=== PATIENT | female | born 1990 | race Caucasian/White ===

== ENCOUNTER 2023-08-16 13:47 | Inpatient (IN) | payer OTHER ==
[~2023-08-16] VITALS: Ht 170.2 cm; Wt 68.0 kg
[2023-08-16] MEDS ORDERED: GABAPENTIN (13:59)
[2023-08-16] MEDS ORDERED: KEPPRA (13:59)
[2023-08-16] MEDS ORDERED: CELEXA (13:59)
[2023-08-16] MEDS ORDERED: ONDANSETRON 4 MG/2 ML VIAL ONE (14:05)
[2023-08-16] MEDS ORDERED: HYDROMORPHONE 1 MG/1 ML DISP.SYRIN ONE ×2 (14:05→15:03)
[2023-08-16] MEDS ORDERED: IV NORMAL SALINE 1000 ML BAG IV ONE (14:15)
[2023-08-16] MEDS ORDERED: HYDROMORPHONE 1 MG/1 ML DISP.SYRIN IV ONE ×2 (14:15→15:00)
[2023-08-16] MEDS ORDERED: ONDANSETRON 4 MG/2 ML VIAL IV ONE (14:15)
[2023-08-16 14:17] LABS: BASOPHILS % (AUTO) 0.3 % (0.0-2.0); HEMATOCRIT 38.2 % (31.2-41.9); LYMPHOCYTES # (AUTO) 0.4 K/uL (0.8-4.8); LYMPHOCYTES % (AUTO) 4.6 % (20.5-51.5); MEAN CORPUSCULAR HEMOGLOBIN 30.1 uug (24.7-32.8); MEAN CORPUSCULAR HGB CONC 34 g/dL (32.3-35.6); MEAN CORPUSCULAR VOLUME 88.6 fL (75.5-95.3); MONOCYTES # (AUTO) 0.3 K/uL (0.1-1.30); MONOCYTES % (AUTO) 3.6 % (0.0-11.0); NEUTROPHILS # (AUTO) 7.5 K/uL (1.8-8.9); NEUTROPHILS % (AUTO) 91.5 % (38.5-71.5); PLATELET COUNT (AUTO) 134 K/uL (179-408); RED BLOOD CELL COUNT(AUTO) 4.31 MIL/uL (3.63-4.92); RED CELL DISTRIBUTION WIDTH 13.4 % (12.3-17.7); WHITE BLOOD COUNT (AUTO) 8.2 K/uL (3.8-11.8)
[2023-08-16 14:19] LABS: DIFFERENTIAL COMMENT 1
[2023-08-16 14:30] LABS: ALANINE AMINOTRANSFERASE 85 U/L (14-59); ALKALINE PHOSPHATASE 115 U/L (50-136); ASPARTATE AMINOTRANSFERASE 106 U/L (15-37); BILIRUBIN,DIRECT 0.1 mg/dL (0.0-0.2); BILIRUBIN,TOTAL 0.5 mg/dL (0.2-1.0); CALCIUM 8.9 mg/dL (8.5-10.1); CARBON DIOXIDE 24 mmol/L (21-32); CHLORIDE 93 mmol/L (98-107); CREATININE 0.7 mg/dL (0.6-1.3); GLUCOSE 105 mg/dL (74-106); POTASSIUM 3.8 mmol/L (3.5-5.1); SODIUM SERUM 130 mmol/L (136-145); TOTAL PROTEIN, SERUM 7.1 g/dL (6.4-8.2); UREA NITROGEN, BLOOD 11 mg/dL (7-18)
[2023-08-16 14:34] LABS: PREGNANCY TEST SERUM QUAN < 1 miul/L (0-6)
[2023-08-16 14:47] LABS: LIPASE 5390 U/L (73-393)
[2023-08-16] MEDS ORDERED: REMEDY ESSENTIAL ZINC PASTE 113 GM TP PRN (16:15)
[2023-08-16] MEDS ORDERED: ZOLPIDEM 5 MG TABLET PO PRN (16:15)
[2023-08-16] MEDS ORDERED: ACETAMINOPHEN 325 MG TABLET PO PRN (16:15)
[2023-08-16] MEDS ORDERED: MAGNESIUM HYDROXIDE 30 ML LIQUID UDC PO PRN (16:15)
[2023-08-16] MEDS ORDERED: MORPHINE SULFATE 2 MG/1 ML DISP.SYRIN IV PRN (16:15)
[2023-08-16 16:39] VITALS: BP 129/81; TEMP 98.5; O2SAT 96
[2023-08-16] MEDS: ONDANSETRON 4 MG/2 ML VIAL IV PRN ×2 (16:39→23:33)
[2023-08-16] MEDS: IV NS 1000 ML 1,000 ML IV PRN (16:39)
[2023-08-16] MEDS ORDERED: levETIRAcetam 250 MG TABLET PO SCH (17:00)
[2023-08-16] MEDS ORDERED: MORPHINE SULFATE 2 MG/1 ML DISP.SYRIN IM ONE (18:15)
[2023-08-16] MEDS ORDERED: LEVE500T9 PO (18:23)
[2023-08-16] MEDS ORDERED: CITA20TA19 PO (18:23)
[2023-08-16] MEDS ORDERED: GABA300C PO (18:24)
[2023-08-16] MEDS: METOCLOPRAMIDE HCL 10 MG/2 ML VIAL IV SCH ×2 (18:26→21:33)
[2023-08-16] MEDS: levETIRAcetam 500 MG TABLET PO SCH (18:55)
[2023-08-16] MEDS: GABAPENTIN 100 MG CAPSULE PO SCH (18:55)
[2023-08-16] MEDS ORDERED: HYDROMORPHONE 2 MG/1 ML DISP.SYRIN IV ONE (20:30)
[2023-08-16] MEDS: LORAZEPAM 1 MG TABLET PO PRN (22:28)
[2023-08-17] MEDS: MORPHINE SULFATE 2 MG/1 ML DISP.SYRIN IM PRN ×2 (00:44→05:05)
[2023-08-17 04:00] VITALS: BP 133/84; TEMP 98.8; O2SAT 94
[2023-08-17] MEDS: LORAZEPAM 1 MG TABLET PO PRN ×2 (04:34→17:39)
[2023-08-17] MEDS: METOCLOPRAMIDE HCL 10 MG/2 ML VIAL IV SCH ×3 (05:26→20:47)
[2023-08-17] MEDS: IV NS 1000 ML 1,000 ML IV PRN ×2 (05:32→20:48)
[2023-08-17 06:17] LABS: BASOPHILS % (AUTO) 0.2 % (0.0-2.0); EOSINOPHILS % (AUTO) 0.2 % (0.0-7.0); HEMATOCRIT 34.5 % (31.2-41.9); HEMOGLOBIN 11.8 g/dL (10.9-14.3); LYMPHOCYTES # (AUTO) 0.7 K/uL (0.8-4.8); LYMPHOCYTES % (AUTO) 13.5 % (20.5-51.5); MEAN CORPUSCULAR HEMOGLOBIN 30.3 uug (24.7-32.8); MEAN CORPUSCULAR HGB CONC 34 g/dL (32.3-35.6); MEAN CORPUSCULAR VOLUME 88.7 fL (75.5-95.3); MONOCYTES # (AUTO) 0.4 K/uL (0.1-1.30); MONOCYTES % (AUTO) 8.6 % (0.0-11.0); NEUTROPHILS # (AUTO) 3.8 K/uL (1.8-8.9); NEUTROPHILS % (AUTO) 77.5 % (38.5-71.5); PLATELET COUNT (AUTO) 92 K/uL (179-408); RED BLOOD CELL COUNT(AUTO) 3.89 MIL/uL (3.63-4.92); RED CELL DISTRIBUTION WIDTH 13.1 % (12.3-17.7); WHITE BLOOD COUNT (AUTO) 4.9 K/uL (3.8-11.8)
[2023-08-17 06:38] LABS: ALBUMIN 3.3 g/dL (3.4-5.0); BILIRUBIN,TOTAL 0.6 mg/dL (0.2-1.0); CALCIUM 8.6 mg/dL (8.5-10.1); CREATININE 0.6 mg/dL (0.6-1.3); MAGNESIUM 1.6 mg/dL (1.8-2.4); PHOSPHOROUS 3.2 mg/dL (2.5-4.9); POTASSIUM 3.9 mmol/L (3.5-5.1)
[2023-08-17 06:55] LABS: DIFFERENTIAL COMMENT 1
[2023-08-17] MEDS ORDERED: MAGNESIUM SULFATE/D5W 100 ML IV ONE (09:00)
[2023-08-17] MEDS: GABAPENTIN 100 MG CAPSULE PO SCH ×2 (09:50→17:03)
[2023-08-17] MEDS: PANTOPRAZOLE SODIUM 40 MG VIAL IV SCH (09:50)
[2023-08-17] MEDS: levETIRAcetam 500 MG TABLET PO SCH ×2 (09:50→17:03)
[2023-08-17] MEDS: MORPHINE SULFATE 2 MG/1 ML DISP.SYRIN IV PRN ×2 (10:13→17:03)
[2023-08-17 11:30] VITALS: BP 144/99; TEMP 97.9; O2SAT 98
[2023-08-17] MEDS: CITALOPRAM 20 MG TABLET PO SCH (11:35)
[2023-08-17] MEDS: HYDROCODONE/APAP 10-325 MG TABLET PO PRN ×2 (13:29→21:33)
[2023-08-17 16:00] VITALS: BP 130/87; TEMP 98.1; O2SAT 99
[2023-08-17 20:00] VITALS: BP 130/96; TEMP 98.1; O2SAT 99
[2023-08-18] MEDS: LORAZEPAM 1 MG TABLET PO PRN (01:18)
[2023-08-18] MEDS: HYDROCODONE/APAP 10-325 MG TABLET PO PRN (03:39)
[2023-08-18 04:01] VITALS: BP 137/94; TEMP 97.7; O2SAT 99
[2023-08-18] MEDS: METOCLOPRAMIDE HCL 10 MG/2 ML VIAL IV SCH ×2 (05:55→14:13)
[2023-08-18 07:06] LABS: BASOPHILS % (AUTO) 0.2 % (0.0-2.0); EOSINOPHILS # (AUTO) 0.1 K/uL (0.0-0.7); EOSINOPHILS % (AUTO) 1.3 % (0.0-7.0); HEMATOCRIT 34.2 % (31.2-41.9); HEMOGLOBIN 11.8 g/dL (10.9-14.3); LYMPHOCYTES % (AUTO) 22.3 % (20.5-51.5); MEAN CORPUSCULAR HEMOGLOBIN 30.7 uug (24.7-32.8); MEAN CORPUSCULAR HGB CONC 34 g/dL (32.3-35.6); MEAN CORPUSCULAR VOLUME 89.1 fL (75.5-95.3); MONOCYTES # (AUTO) 0.4 K/uL (0.1-1.30); MONOCYTES % (AUTO) 9.2 % (0.0-11.0); PLATELET COUNT (AUTO) 87 K/uL (179-408); RED BLOOD CELL COUNT(AUTO) 3.84 MIL/uL (3.63-4.92); RED CELL DISTRIBUTION WIDTH 12.8 % (12.3-17.7); WHITE BLOOD COUNT (AUTO) 4.5 K/uL (3.8-11.8)
[2023-08-18 07:37] LABS: DIFFERENTIAL COMMENT 1
[2023-08-18 08:10] LABS: ALBUMIN 3.4 g/dL (3.4-5.0); BILIRUBIN,TOTAL 0.6 mg/dL (0.2-1.0); CALCIUM 8.9 mg/dL (8.5-10.1); CREATININE 0.6 mg/dL (0.6-1.3); POTASSIUM 3.5 mmol/L (3.5-5.1); TOTAL PROTEIN, SERUM 6.5 g/dL (6.4-8.2)
[2023-08-18] MEDS: GABAPENTIN 100 MG CAPSULE PO SCH (09:39)
[2023-08-18] MEDS: levETIRAcetam 500 MG TABLET PO SCH (09:39)
[2023-08-18] MEDS: PANTOPRAZOLE SODIUM 40 MG VIAL IV SCH (09:39)
[2023-08-18] MEDS: CITALOPRAM 20 MG TABLET PO SCH (09:39)
[2023-08-18] MEDS: ONDANSETRON 4 MG/2 ML VIAL IV PRN (10:24)
[2023-08-18] MEDS ORDERED: HYDR-3980 PO (14:59)
[2023-08-18] MEDS ORDERED: PANT40TA49 PO (14:59)
[2023-08-18] MEDS ORDERED: CITA20TA16 PO (14:59)
[2023-08-18] MEDS ORDERED: ONDA4TAB5 PO (14:59)
[2023-08-18] MEDS ORDERED: LEVE500T9 PO (14:59)
[2023-08-18 17:37] LABS: LYMPHOCYTES % (MANUAL) 18 % (20-40); MONOCYTES % (MANUAL) 7 % (2-10); MYELOCYTES % 1 % (0-0); NEUTROPHILS % (MANUAL) 74 % (42-75)
[2023-08-18 17:39] LABS: PLATELET ESTIMATE DECREASED
[2023-08-19] MEDS ORDERED: PANTOPRAZOLE SODIUM 40 MG TABLET.DR PO SCH (07:00)
== END 2023-08-18 15:30 | disposition home or self-care (01) | DRG 439 ==
LOC: ER 13:47 → MEDSURG3 16:02
PROVIDERS: ADMIT Nurse Practitioner Acute Care; ATTEND Nurse Practitioner Acute Care
DX: K85.90 Acute pancreatitis without necrosis or infection, unspecified (principal); E87.1 Hypo-osmolality and hyponatremia; G40.909 Epilepsy, unspecified, not intractable, without status epilepticus; E83.42 Hypomagnesemia; D69.6 Thrombocytopenia, unspecified; F10.10 Alcohol abuse, uncomplicated; K76.0 Fatty (change of) liver, not elsewhere classified; F39 Unspecified mood [affective] disorder; Z79.899 Other long term (current) drug therapy; Z87.19 Personal history of other diseases of the digestive system
CPT/HCPCS: 36415; 70030-TC; 80299; 83690; 83735; 84100; 85025; A4663; C9113; G0378; J1170; J2270; J2405; J2765; J3475; J7040

== ENCOUNTER 2023-10-11 02:55 | Inpatient (IN) | payer OTHER ==
[~2023-10-11] VITALS: Ht 170.2 cm; Wt 63.5 kg
[~2023-10-11 02:55] MED LIST: CITA20TA16 PO; CITA20TA19 PO; GABA300C PO; HYDR-3980 PO; LEVE500T9 PO; ONDA4TAB5 PO; PANT40TA49 PO
[2023-10-11] MEDS ORDERED: ONDANSETRON 4 MG/2 ML VIAL ONE (03:14)
[2023-10-11] MEDS ORDERED: ONDANSETRON 4 MG/2 ML VIAL IV ONE (03:15)
[2023-10-11] MEDS ORDERED: IV NORMAL SALINE 1000 ML BAG IV ONE (03:15)
[2023-10-11] MEDS ORDERED: HYDROMORPHONE 1 MG/1 ML DISP.SYRIN ONE (03:15)
[2023-10-11] MEDS ORDERED: HYDROMORPHONE 1 MG/1 ML DISP.SYRIN IV ONE (03:15)
[2023-10-11] MEDS ORDERED: LORAZEPAM 2 MG/1 ML VIAL ONE (03:26)
[2023-10-11] MEDS ORDERED: LORAZEPAM 2 MG/1 ML VIAL IV ONE (03:30)
[2023-10-11 03:40] LABS: BASOPHILS % (AUTO) 0.3 % (0.0-2.0); EOSINOPHILS % (AUTO) 0.1 % (0.0-7.0); HEMATOCRIT 41.5 % (31.2-41.9); HEMOGLOBIN 14.2 g/dL (10.9-14.3); LYMPHOCYTES # (AUTO) 0.7 K/uL (0.8-4.8); LYMPHOCYTES % (AUTO) 15.2 % (20.5-51.5); MEAN CORPUSCULAR HEMOGLOBIN 30.7 uug (24.7-32.8); MEAN CORPUSCULAR HGB CONC 34 g/dL (32.3-35.6); MEAN CORPUSCULAR VOLUME 89.7 fL (75.5-95.3); MONOCYTES # (AUTO) 0.4 K/uL (0.1-1.30); MONOCYTES % (AUTO) 9.2 % (0.0-11.0); NEUTROPHILS # (AUTO) 3.3 K/uL (1.8-8.9); NEUTROPHILS % (AUTO) 75.2 % (38.5-71.5); PLATELET COUNT (AUTO) 99 K/uL (179-408); RED BLOOD CELL COUNT(AUTO) 4.63 MIL/uL (3.63-4.92); RED CELL DISTRIBUTION WIDTH 16.9 % (12.3-17.7); WHITE BLOOD COUNT (AUTO) 4.4 K/uL (3.8-11.8)
[2023-10-11 03:42] LABS: *BLOOD, URINE NEGATIVE (NEGATIVE); *CLARITY,URINE CLEAR (CLEAR); *COLOR,URINE YELLOW (YELLOW); *KETONES,URINE 2+ (NEGATIVE); *PROTEIN,URINE 2+ (NEGATIVE); *UROBILINOGEN,URINE >=8.0 E.U./dl (NORMAL); LEUKOCYTE ESTERASE ,URINE NEGATIVE (NEGATIVE); NITRITE, URINE NEGATIVE (NEGATIVE); PH,URINE 8.5 (5.0-8.0); UGLUCOSE TRACE (NEGATIVE)
[2023-10-11 03:44] LABS: *BILIRUBIN,URIN 2+ (NEGATIVE)
[2023-10-11 03:45] LABS: DIFFERENTIAL COMMENT 1
[2023-10-11 03:53] LABS: BACTERIA,URINE FEW /HPF (NONE SEEN); SQUAMOUS EPITHELIAL CELL,UR MODERATE /HPF (NONE SEEN); URINE AMORPHOUS URATE MODERATE /HPF; WBC,URINE 0-3 /HPF (0-3)
[2023-10-11 04:04] LABS: CALCIUM 10.1 mg/dL (8.5-10.1); CARBON DIOXIDE 26 mmol/L (21-32); CHLORIDE 88 mmol/L (98-107); CREATININE 0.9 mg/dL (0.6-1.3); GLUCOSE 98 mg/dL (74-106); POTASSIUM 3.5 mmol/L (3.5-5.1); SODIUM SERUM 130 mmol/L (136-145); UREA NITROGEN, BLOOD 14 mg/dL (7-18)
[2023-10-11 04:11] LABS: ALANINE AMINOTRANSFERASE 95 U/L (14-59); ALBUMIN 4.7 g/dL (3.4-5.0); ALKALINE PHOSPHATASE 154 U/L (50-136); ASPARTATE AMINOTRANSFERASE 142 U/L (15-37); BILIRUBIN,DIRECT 0.4 mg/dL (0.0-0.2); BILIRUBIN,TOTAL 1.1 mg/dL (0.2-1.0); TOTAL PROTEIN, SERUM 7.9 g/dL (6.4-8.2)
[2023-10-11 04:15] LABS: PREGNANCY TEST SERUM QUAN < 1 miul/L (0-6)
[2023-10-11] MEDS ORDERED: MAGNESIUM SULFATE/D5W 100 ML ONE ×2 (04:23→04:56)
[2023-10-11] MEDS: MAGNESIUM SULFATE/D5W 100 ML IV SCH ×2 (04:31→05:07)
[2023-10-11 04:39] LABS: LIPASE 576 U/L (16-77)
[2023-10-11] MEDS ORDERED: MORPHINE SULFATE 2 MG/1 ML DISP.SYRIN IV PRN (04:45)
[2023-10-11] MEDS ORDERED: MAGNESIUM HYDROXIDE 30 ML LIQUID UDC PO PRN (04:45)
[2023-10-11] MEDS ORDERED: REMEDY ESSENTIAL ZINC PASTE 113 GM TP PRN (04:45)
[2023-10-11] MEDS ORDERED: LORAZEPAM 2 MG/1 ML VIAL IV PRN (04:45)
[2023-10-11] MEDS ORDERED: IV NS 1000 ML 1,000 ML IV PRN (04:45)
[2023-10-11] MEDS ORDERED: ACETAMINOPHEN 325 MG TABLET PO PRN (04:45)
[2023-10-11] MEDS ORDERED: GABAPENTIN 300 MG CAPSULE PO PRN (04:45)
[2023-10-11 05:15] VITALS: BP 125/87; TEMP 98.5; O2SAT 98
[2023-10-11 05:16] LABS: BAND % (MANUAL) 1 % (0-10); LYMPHOCYTES % (MANUAL) 14 % (20-40); MONOCYTES % (MANUAL) 3 % (2-10); NEUTROPHILS % (MANUAL) 82 % (42-75); PLATELET ESTIMATE MARKED DECREASED
[2023-10-11 05:17] LABS: ANISOCYTOSIS 1+
[2023-10-11] MEDS: levETIRAcetam 500 MG TABLET PO SCH ×2 (08:04→20:07)
[2023-10-11] MEDS: CITALOPRAM 20 MG TABLET PO SCH (08:04)
[2023-10-11] MEDS: ONDANSETRON 4 MG/2 ML VIAL IV PRN (09:24)
[2023-10-11] MEDS ORDERED: MAGNESIUM OXIDE 400 MG TABLET PO ONE (10:00)
[2023-10-11] MEDS ORDERED: THIAMINE HCL INJ 100 MG in IV DEXTROSE 5% 50 ML IV ONE (10:00)
[2023-10-11] MEDS: IV LACTATED RINGERS SOLUTION 1,000 ML IV PRN (10:04)
[2023-10-11] MEDS: LORAZEPAM 2 MG/1 ML VIAL IV PRN ×2 (10:22→20:07)
[2023-10-11 11:22] VITALS: BP 127/83; TEMP 97.9; O2SAT 98
[2023-10-11] MEDS ORDERED: IV NORMAL SALINE 500 ML IV ONE (14:00)
[2023-10-11 16:28] VITALS: BP 113/81; TEMP 98.3; O2SAT 98
[2023-10-11] MEDS: MORPHINE SULFATE 4 MG/1 ML DISP.SYRIN IV PRN (20:10)
[2023-10-11 20:30] VITALS: BP 130/92; TEMP 98.5; O2SAT 99
[2023-10-12] MEDS: LORAZEPAM 2 MG/1 ML VIAL IV PRN ×2 (04:32→12:46)
[2023-10-12 04:40] VITALS: BP 133/96; TEMP 98.3; O2SAT 100
[2023-10-12] MEDS: IV LACTATED RINGERS SOLUTION 1,000 ML IV PRN (04:57)
[2023-10-12 06:45] LABS: BASOPHILS % (AUTO) 0.2 % (0.0-2.0); DIFFERENTIAL COMMENT 0; EOSINOPHILS % (AUTO) 1.2 % (0.0-7.0); HEMATOCRIT 33.4 % (31.2-41.9); HEMOGLOBIN 11.7 g/dL (10.9-14.3); LYMPHOCYTES # (AUTO) 0.6 K/uL (0.8-4.8); LYMPHOCYTES % (AUTO) 17.1 % (20.5-51.5); MEAN CORPUSCULAR HEMOGLOBIN 31.5 uug (24.7-32.8); MEAN CORPUSCULAR HGB CONC 35 g/dL (32.3-35.6); MEAN CORPUSCULAR VOLUME 90.2 fL (75.5-95.3); MONOCYTES # (AUTO) 0.5 K/uL (0.1-1.30); MONOCYTES % (AUTO) 12.3 % (0.0-11.0); NEUTROPHILS # (AUTO) 2.6 K/uL (1.8-8.9); NEUTROPHILS % (AUTO) 69.2 % (38.5-71.5); PLATELET COUNT (AUTO) 67 K/uL (179-408); RED CELL DISTRIBUTION WIDTH 16.3 % (12.3-17.7); WHITE BLOOD COUNT (AUTO) 3.8 K/uL (3.8-11.8)
[2023-10-12 06:58] LABS: THYROID STIMULATING HORMONE 3.391 mIU/mL (0.358-3.740)
[2023-10-12 07:03] LABS: ALBUMIN 3.3 g/dL (3.4-5.0); BILIRUBIN,DIRECT 0.2 mg/dL (0.0-0.2); BILIRUBIN,TOTAL 0.7 mg/dL (0.2-1.0); CALCIUM 8.8 mg/dL (8.5-10.1); CREATININE 0.6 mg/dL (0.6-1.3); PHOSPHOROUS 3.3 mg/dL (2.5-4.9); POTASSIUM 3.2 mmol/L (3.5-5.1); TOTAL PROTEIN, SERUM 5.7 g/dL (6.4-8.2)
[2023-10-12 07:30] LABS: URIC ACID 2.2 mg/dL (2.6-6.0)
[2023-10-12] MEDS: levETIRAcetam 500 MG TABLET PO SCH ×2 (08:30→20:04)
[2023-10-12] MEDS: CITALOPRAM 20 MG TABLET PO SCH (08:30)
[2023-10-12] MEDS: THIAMINE HCL 100 MG TABLET PO SCH (08:52)
[2023-10-12] MEDS ORDERED: POTASSIUM CHLORIDE 20 MEQ TAB.PRT.SR PO ONE (10:00)
[2023-10-12 11:42] VITALS: BP 127/94; TEMP 97.8; O2SAT 98
[2023-10-12] MEDS: IV LACTATED RINGERS SOLUTION 1,000 ML IV SCH (15:35)
[2023-10-12] MEDS: ONDANSETRON 4 MG/2 ML VIAL IV PRN (15:50)
[2023-10-12 16:07] VITALS: BP 124/94; TEMP 98.4; O2SAT 99
[2023-10-12] MEDS: MORPHINE SULFATE 4 MG/1 ML DISP.SYRIN IV PRN (16:45)
[2023-10-12 20:00] VITALS: BP 126/86; TEMP 97.8; O2SAT 99
[2023-10-13] MEDS: LORAZEPAM 2 MG/1 ML VIAL IV PRN ×2 (00:07→10:11)
[2023-10-13] MEDS: MORPHINE SULFATE 4 MG/1 ML DISP.SYRIN IV PRN (00:56)
[2023-10-13] MEDS: IV LACTATED RINGERS SOLUTION 1,000 ML IV SCH (01:00)
[2023-10-13 05:30] VITALS: BP 141/96; TEMP 98.2; O2SAT 97
[2023-10-13 06:43] LABS: BASOPHILS % (AUTO) 0.1 % (0.0-2.0); EOSINOPHILS # (AUTO) 0.1 K/uL (0.0-0.7); EOSINOPHILS % (AUTO) 1.6 % (0.0-7.0); HEMATOCRIT 35.4 % (31.2-41.9); HEMOGLOBIN 12.4 g/dL (10.9-14.3); LYMPHOCYTES % (AUTO) 19.4 % (20.5-51.5); MEAN CORPUSCULAR HEMOGLOBIN 31.6 uug (24.7-32.8); MEAN CORPUSCULAR HGB CONC 35 g/dL (32.3-35.6); MEAN CORPUSCULAR VOLUME 90.2 fL (75.5-95.3); MONOCYTES # (AUTO) 0.5 K/uL (0.1-1.30); MONOCYTES % (AUTO) 10.5 % (0.0-11.0); NEUTROPHILS # (AUTO) 3.4 K/uL (1.8-8.9); NEUTROPHILS % (AUTO) 68.4 % (38.5-71.5); PLATELET COUNT (AUTO) 82 K/uL (179-408); RED BLOOD CELL COUNT(AUTO) 3.93 MIL/uL (3.63-4.92); RED CELL DISTRIBUTION WIDTH 16.7 % (12.3-17.7); WHITE BLOOD COUNT (AUTO) 4.9 K/uL (3.8-11.8)
[2023-10-13 06:49] LABS: DIFFERENTIAL COMMENT 1
[2023-10-13 07:01] LABS: ALBUMIN 3.9 g/dL (3.4-5.0); BILIRUBIN,TOTAL 0.6 mg/dL (0.2-1.0); CALCIUM 9.3 mg/dL (8.5-10.1); CREATININE 0.6 mg/dL (0.6-1.3); MAGNESIUM 1.9 mg/dL (1.8-2.4); PHOSPHOROUS 3.4 mg/dL (2.5-4.9); POTASSIUM 3.3 mmol/L (3.5-5.1); TOTAL PROTEIN, SERUM 6.9 g/dL (6.4-8.2)
[2023-10-13] MEDS: levETIRAcetam 500 MG TABLET PO SCH (08:59)
[2023-10-13] MEDS: THIAMINE HCL 100 MG TABLET PO SCH (09:00)
[2023-10-13] MEDS: CITALOPRAM 20 MG TABLET PO SCH (09:00)
[2023-10-13] MEDS ORDERED: POTASSIUM CHLORIDE 20 MEQ TAB.PRT.SR PO ONE (10:15)
[2023-10-13 11:20] VITALS: BP 134/96; TEMP 97.9; O2SAT 98
== END 2023-10-13 11:45 | disposition home or self-care (01) | DRG 439 ==
LOC: ER 02:58 → MEDSURG3 04:40
PROVIDERS: ADMIT Nurse Practitioner Family; ATTEND Nurse Practitioner Acute Care
DX: K85.20 Alcohol induced acute pancreatitis without necrosis or infection (principal); E87.1 Hypo-osmolality and hyponatremia; G40.509 Epileptic seizures related to external causes, not intractable, without status epilepticus; F10.239 Alcohol dependence with withdrawal, unspecified; E83.42 Hypomagnesemia; K86.0 Alcohol-induced chronic pancreatitis; F10.20 Alcohol dependence, uncomplicated; E87.6 Hypokalemia; K29.20 Alcoholic gastritis without bleeding; K70.30 Alcoholic cirrhosis of liver without ascites; E87.8 Other disorders of electrolyte and fluid balance, not elsewhere classified; E86.9 Volume depletion, unspecified; F39 Unspecified mood [affective] disorder; Z79.899 Other long term (current) drug therapy; Z87.891 Personal history of nicotine dependence; Z98.890 Other specified postprocedural states; D69.59 Other secondary thrombocytopenia
CPT/HCPCS: 36415; 70030-TC; 80299; 83690; 83735; 84100; 84443; 84550; 85025; 93005; G0378; J1170; J2060; J2270; J2405; J3411; J3475; J7040; J7120

== ENCOUNTER 2023-10-27 14:38 | Inpatient (IN) | payer OTHER ==
[~2023-10-27] VITALS: Ht 170.2 cm; Wt 63.5 kg
[~2023-10-27 14:38] MED LIST changes: -CITA20TA16 PO; -HYDR-3980 PO; -ONDA4TAB5 PO; -PANT40TA49 PO
[2023-10-27] MEDS ORDERED: IV NORMAL SALINE 1000 ML BAG IV ONE ×2 (15:00→16:15)
[2023-10-27 15:35] LABS: BASOPHILS % (AUTO) 0.5 % (0.0-2.0); HEMATOCRIT 42.1 % (31.2-41.9); HEMOGLOBIN 14.1 g/dL (10.9-14.3); LYMPHOCYTES # (AUTO) 1.5 K/uL (0.8-4.8); LYMPHOCYTES % (AUTO) 15.5 % (20.5-51.5); MEAN CORPUSCULAR HEMOGLOBIN 31.2 uug (24.7-32.8); MEAN CORPUSCULAR HGB CONC 34 g/dL (32.3-35.6); MEAN CORPUSCULAR VOLUME 93.2 fL (75.5-95.3); MONOCYTES # (AUTO) 0.3 K/uL (0.1-1.30); MONOCYTES % (AUTO) 3.4 % (0.0-11.0); NEUTROPHILS # (AUTO) 8.1 K/uL (1.8-8.9); NEUTROPHILS % (AUTO) 80.6 % (38.5-71.5); PLATELET COUNT (AUTO) 616 K/uL (179-408); RED BLOOD CELL COUNT(AUTO) 4.52 MIL/uL (3.63-4.92); RED CELL DISTRIBUTION WIDTH 17.5 % (12.3-17.7)
[2023-10-27 15:37] LABS: DIFFERENTIAL COMMENT 1
[2023-10-27 15:48] LABS: CALCIUM 8.9 mg/dL (8.5-10.1); CREATININE 0.6 mg/dL (0.6-1.3); POTASSIUM 4.4 mmol/L (3.5-5.1)
[2023-10-27 15:49] LABS: *BILIRUBIN,URIN NEGATIVE (NEGATIVE); *CLARITY,URINE CLEAR (CLEAR); *COLOR,URINE YELLOW (YELLOW); *KETONES,URINE 1+ (NEGATIVE); *PROTEIN,URINE 2+ (NEGATIVE); *UROBILINOGEN,URINE 0.2 E.U./dl (NORMAL); LEUKOCYTE ESTERASE ,URINE NEGATIVE (NEGATIVE); NITRITE, URINE NEGATIVE (NEGATIVE); UGLUCOSE NEGATIVE (NEGATIVE)
[2023-10-27 15:51] LABS: *BLOOD, URINE TRACE (NEGATIVE)
[2023-10-27 15:55] LABS: *URINE HCG, QUAL NEGATIVE (NEGATIVE); BACTERIA,URINE FEW /HPF (NONE SEEN); SQUAMOUS EPITHELIAL CELL,UR FEW /HPF (NONE SEEN); WBC,URINE 0-3 /HPF (0-3)
[2023-10-27 16:02] LABS: ALBUMIN 4.2 g/dL (3.4-5.0); BILIRUBIN,TOTAL 0.3 mg/dL (0.2-1.0)
[2023-10-27 16:04] LABS: *AMPHETAMINE, URINE NEGATIVE (NEGATIVE); *BARBITURATE, URINE NEGATIVE (NEGATIVE); *BENZODIAZEPINE, URINE NEGATIVE (NEGATIVE); *CANNABINOID, URINE NEGATIVE (NEGATIVE); *COCCAINE, URINE NEGATIVE (NEGATIVE); *OPIATE, URINE NEGATIVE (NEGATIVE); *PHENCYCLIDINE SCREEN,URINE NEGATIVE (NEGATIVE); FENTANYL, URINE NEGATIVE (NEGATIVE)
[2023-10-27] MEDS ORDERED: levETIRAcetam 250 MG TABLET ONE (16:13)
[2023-10-27] MEDS ORDERED: levETIRAcetam 250 MG TABLET PO ONE (16:15)
[2023-10-27] MEDS ORDERED: PIPERACILLIN SODIUM/TAZOBACTAM 3.375 G in IV DEXTROSE 5% 50 ML IV ONE (16:15)
[2023-10-27] MEDS ORDERED: PIPERACILLIN/TAZOBACTAM/D5W 50 ML IV ONE (16:32)
[2023-10-27] MEDS ORDERED: TEMAZEPAM 15 MG CAPSULE PO PRN (21:45)
[2023-10-27] MEDS ORDERED: ACETAMINOPHEN 325 MG TABLET PO PRN (21:45)
[2023-10-27] MEDS ORDERED: LORAZEPAM 2 MG/1 ML VIAL IV PRN (21:45)
[2023-10-27] MEDS ORDERED: REMEDY ESSENTIAL ZINC PASTE 113 GM TP PRN (21:45)
[2023-10-27] MEDS ORDERED: IV NS 1000 ML 1,000 ML IV PRN (21:45)
[2023-10-27] MEDS ORDERED: ONDANSETRON 4 MG/2 ML VIAL IV PRN (21:45)
[2023-10-27] MEDS ORDERED: THIAMINE HCL INJ 100 MG in IV DEXTROSE 5% 50 ML IV SCH (21:45)
[2023-10-27] MEDS ORDERED: MAGNESIUM HYDROXIDE 30 ML LIQUID UDC PO PRN (21:45)
[2023-10-27] MEDS ORDERED: THIAMINE HCL 200 MG/2 ML VIAL ONE (22:34)
[2023-10-28 00:21] VITALS: TEMP 98.4
[2023-10-28 00:37] VITALS: BP 124/78; TEMP 98.4; O2SAT 97
[2023-10-28] MEDS ORDERED: MORPHINE SULFATE 2 MG/1 ML DISP.SYRIN IV PRN (01:15)
[2023-10-28 05:10] VITALS: BP 115/73; TEMP 97.7; O2SAT 96
[2023-10-28 06:55] LABS: BASOPHILS % (AUTO) 0.3 % (0.0-2.0); EOSINOPHILS % (AUTO) 0.4 % (0.0-7.0); LYMPHOCYTES # (AUTO) 0.8 K/uL (0.8-4.8); LYMPHOCYTES % (AUTO) 17.6 % (20.5-51.5); MEAN CORPUSCULAR HEMOGLOBIN 30.9 uug (24.7-32.8); MEAN CORPUSCULAR HGB CONC 33 g/dL (32.3-35.6); MEAN CORPUSCULAR VOLUME 92.5 fL (75.5-95.3); MONOCYTES # (AUTO) 0.3 K/uL (0.1-1.30); MONOCYTES % (AUTO) 6.3 % (0.0-11.0); NEUTROPHILS # (AUTO) 3.3 K/uL (1.8-8.9); NEUTROPHILS % (AUTO) 75.4 % (38.5-71.5); PLATELET COUNT (AUTO) 377 K/uL (179-408); RED BLOOD CELL COUNT(AUTO) 3.89 MIL/uL (3.63-4.92); RED CELL DISTRIBUTION WIDTH 16.9 % (12.3-17.7); WHITE BLOOD COUNT (AUTO) 4.3 K/uL (3.8-11.8)
[2023-10-28 07:01] LABS: DIFFERENTIAL COMMENT 1
[2023-10-28 07:13] LABS: CALCIUM 8.6 mg/dL (8.5-10.1); CARBON DIOXIDE 26 mmol/L (21-32); CHLORIDE 97 mmol/L (98-107); CREATININE 0.5 mg/dL (0.6-1.3); GLUCOSE 106 mg/dL (74-106); MAGNESIUM 1.7 mg/dL (1.8-2.4); POTASSIUM 3.7 mmol/L (3.5-5.1); SODIUM SERUM 134 mmol/L (136-145); UREA NITROGEN, BLOOD 5 mg/dL (7-18)
[2023-10-28] MEDS: MAGNESIUM SULFATE/D5W 100 ML IV SCH ×2 (08:44→10:58)
[2023-10-28] MEDS: LORAZEPAM 2 MG/1 ML VIAL IV PRN ×4 (08:44→23:06)
[2023-10-28] MEDS: PANTOPRAZOLE SODIUM 40 MG VIAL IV SCH (08:44)
[2023-10-28] MEDS ORDERED: POTASSIUM PHOSPHATE MM 15 MMOL in IV NORMAL SALINE 250 ML IV ONE (09:00)
[2023-10-28] MEDS ORDERED: MVI ADULT 10 ML VIAL=1 AMP 10 ML, FOLIC ACID 1 MG, THIAMINE HCL INJ 100 MG, MAGNESIUM S... IV SCH ×5 (10:00)
[2023-10-28 11:44] VITALS: BP 119/81; TEMP 97.8; O2SAT 98
[2023-10-28] MEDS: MORPHINE SULFATE 2 MG/1 ML DISP.SYRIN IV PRN ×2 (12:26→21:15)
[2023-10-28] MEDS ORDERED: LORA0.5T48 PO (12:44)
[2023-10-28] MEDS ORDERED: MIRT-73 PO (12:45)
[2023-10-28] MEDS ORDERED: levETIRAcetam IV 500 MG in IV DEXTROSE 5% 100 ML IV SCH (14:49)
[2023-10-28 14:56] VITALS: BP 126/84; TEMP 98.8; O2SAT 96
[2023-10-28 20:36] VITALS: BP 155/98; TEMP 98.3; O2SAT 96
[2023-10-29] MEDS: MORPHINE SULFATE 2 MG/1 ML DISP.SYRIN IV PRN (05:11)
[2023-10-29 05:20] VITALS: BP 125/87; TEMP 98.6; O2SAT 95
[2023-10-29] MEDS ORDERED: levETIRAcetam IV 500 MG in IV DEXTROSE 5% 100 ML IV SCH (06:00)
[2023-10-29] MEDS ORDERED: IV D5/ 0.9% NACL 1,000 ML IV PRN (06:01)
[2023-10-29 08:00] VITALS: BP 118/80; TEMP 98.9; O2SAT 98
[2023-10-29 08:01] LABS: BASOPHILS % (AUTO) 0.5 % (0.0-2.0); EOSINOPHILS # (AUTO) 0.1 K/uL (0.0-0.7); EOSINOPHILS % (AUTO) 1.7 % (0.0-7.0); HEMATOCRIT 35.9 % (31.2-41.9); LYMPHOCYTES % (AUTO) 28.7 % (20.5-51.5); MEAN CORPUSCULAR HEMOGLOBIN 31.2 uug (24.7-32.8); MEAN CORPUSCULAR HGB CONC 33 g/dL (32.3-35.6); MEAN CORPUSCULAR VOLUME 93.7 fL (75.5-95.3); MONOCYTES # (AUTO) 0.3 K/uL (0.1-1.30); MONOCYTES % (AUTO) 6.9 % (0.0-11.0); NEUTROPHILS # (AUTO) 2.3 K/uL (1.8-8.9); NEUTROPHILS % (AUTO) 62.2 % (38.5-71.5); PLATELET COUNT (AUTO) 265 K/uL (179-408); RED BLOOD CELL COUNT(AUTO) 3.83 MIL/uL (3.63-4.92); RED CELL DISTRIBUTION WIDTH 16.5 % (12.3-17.7); WHITE BLOOD COUNT (AUTO) 3.7 K/uL (3.8-11.8)
[2023-10-29 08:19] LABS: DIFFERENTIAL COMMENT 1
[2023-10-29 08:25] LABS: CALCIUM 8.7 mg/dL (8.5-10.1); CARBON DIOXIDE 23 mmol/L (21-32); CHLORIDE 101 mmol/L (98-107); CREATININE 0.5 mg/dL (0.6-1.3); GLUCOSE 109 mg/dL (74-106); POTASSIUM 3.7 mmol/L (3.5-5.1); SODIUM SERUM 133 mmol/L (136-145); UREA NITROGEN, BLOOD 3 mg/dL (7-18)
[2023-10-29 08:37] LABS: ALANINE AMINOTRANSFERASE 28 U/L (14-59); ALBUMIN 3.2 g/dL (3.4-5.0); ALKALINE PHOSPHATASE 99 U/L (50-136); ASPARTATE AMINOTRANSFERASE 27 U/L (15-37); BILIRUBIN,TOTAL 0.8 mg/dL (0.2-1.0); MAGNESIUM 2.4 mg/dL (1.8-2.4); PHOSPHOROUS 3.2 mg/dL (2.5-4.9); TOTAL PROTEIN, SERUM 6.5 g/dL (6.4-8.2)
[2023-10-29] MEDS: PANTOPRAZOLE SODIUM 40 MG VIAL IV SCH (09:48)
[2023-10-29 10:58] VITALS: BP 167/76; TEMP 98.5; O2SAT 97
[2023-10-29] MEDS ORDERED: THIAMINE HCL INJ 100 MG in IV DEXTROSE 5% 50 ML IV SCH (21:00)
== END 2023-10-29 11:05 | disposition home or self-care (01) | DRG 392 ==
LOC: ER 14:40 → MEDSURG3 15:45
PROVIDERS: ADMIT Nurse Practitioner Acute Care; ATTEND Internal Medicine
DX: K52.89 Other specified noninfective gastroenteritis and colitis (principal); F10.139 Alcohol abuse with withdrawal, unspecified; K86.0 Alcohol-induced chronic pancreatitis; K29.20 Alcoholic gastritis without bleeding; Y90.8 Blood alcohol level of 240 mg/100 ml or more; G40.909 Epilepsy, unspecified, not intractable, without status epilepticus; K70.0 Alcoholic fatty liver; Z87.891 Personal history of nicotine dependence; Z79.899 Other long term (current) drug therapy; Z91.81 History of falling; F10.129 Alcohol abuse with intoxication, unspecified; F41.9 Anxiety disorder, unspecified; F32.A Depression, unspecified
CPT/HCPCS: 36415; 83605; 83690; 83735; 84100; 84703; 85025; C9113; G0378; G0480; J1953; J2060; J2270; J2543; J3411; J3475; J3490; J7040; J7042